=== PATIENT | female | born 2000 | race Caucasian/White ===

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

== ENCOUNTER 2024-03-29 10:34 | Emergency (ER) | payer BC, SELFPAY ==
--- OUTSIDE RECORDS SUMMARY | 2024-03-29 10:37 | XMS REPORT | Continuity of Care Document ---
Author Name Unknown Address [address] [facility] [address] [place], [place] [address] [place] [address] thconnect Address [address] [facility]. [address] [place] [address] Care Team Providers Care Medical Biller Coder Name Role Phone ADOLFO DURAND Primary Care Physician Unavaila GWEN Rodney Attending Clinician GWEN Trujillo Attending Clinician HILARIO Aburto Attending Clinician Unavailable JESSICA SHAIKH Attending Clinician Unavailable ALIYAH MONTANEZ Attending Clinician Unava ilnathanael LAB90 Attending Clinician Unavailable Rodrigo Calderon NP Attending Clinician [phone] RODRIGO CALDERON Attending Clinician Unavailwalter bowser Doctor Unassigned, [place] Attending Clinician U Porsche Gipson MD Attending Clinician [phone] Jessica Attending Clinician Unavail able Gabriele Ellis Attending Clinician [phone] Silvana Aponte RN Attending Clinician PORSCHE Cabrera Attending Clinician Unavailable Jessica Admitting Clinician Unavail able Payers Payer Name Policy Type Policy Number Effective Date Expirati on Date Source [facility] [id number] 2023 00:00:00 BCBS 2 [id number] 2022 00:00:[place] [id number] 2022 00:00:00 [place] [id number] 2022 00:00:00 Problems Condition Name Condition Details Condition Category Status Onset Date Resolution Date Last Treatment Date Treating Clinician Comments Source Asthma Asthma Disease Active 03-12 00:00: 00 Stacie Seybold - Externa l Acute non-recurr ent maxillary sinusitis Acute non-recurr ent maxillary sinusitis Disease Active 03-12 00:00: 00 Stacie Seybold - Externa l Weight loss Weight loss Disease Active 03-12 00:00: 00 Stacie Seybold - Externa l Seasonal allergic rhinitis due to pollen Seasonal allergic rhinitis due to pollen Disease Active 03-12 00:00: 00 Stacie Seybold - Externa l Polyuria Polyuria Disease Active 03-12 00:00: 00 Stacie Seybold - Externa l Overweight (BMI 25.0-29.9) Overweight (BMI 25.0-29.9) Disease Active 03-12 00:00: 00 Stacie Seybold - Externa l BMI 36.0-36.9, adult BMI 36.0-36.9, adult Disease Active 2021-07 0- 00:00: 00 [facility] Pain in right foot Pain in Right Foot Problem Active 01-26 00:00: 00 [facility] Sprain of right foot Sprain of Right Foot Problem Active 01-26 00:00: 00 [facility] Well woman exam with routine gynecologi casey exam Well woman exam with routine gynecologi casey exam Disease Active 8-10 00:00: 00 [facility] Hand pain Hand Pain Problem Active 2018-07 2-23 00:00: 00 [facility] Crushing injury of foot Crushing Injury of Foot Problem Active 2018-07 00:00: 00 [facility] Sprain of foot Sprain of Foot Problem Active 2013-07 006 00:00: 00 [facility] Closed fracture of middle AND/OR proximal phalanx of finger Closed Fracture of Middle AND/OR Proximal Phalanx of Finger Problem Active 3 00:00: 00 [facility] Asthma Asthma Problem Active 2012-07 00:00: 00 [facility] Sprain of ankle Sprain of Ankle Problem Active 2012-07 00:00: 00 [facility] No known active problems No known active problems Disease Stacie diaz Allergies, Adverse Reactions, Alerts Allergy Name Allergy Type Status Severity Reaction(s) Onset Date Inactive Date Treating Clinician Comments Source Ibuprofe n Propensi ty to adverse reaction s Active Hives 09-21 00:00: 00 [facility] IBUPROFE N DRUG INGREDI Active Hives 09-21 00:00: 00 [facility] Ibuprofe n Allergy to substanc e Active 2012-07 00:00: 00 [facility] Ibuprofe n Propensi ty to adverse reaction s Active Hives 9 00:00: 00 Stacie diaz Social History Social Habit Start Date Stop Date Quantity Comments Source Sexual orientation Sun Rojas - External History SDOH Alcohol Frequency [facility] History SDOH [facility] Alcohol Binge [facility] Gender identity Paula Rojas - External Tobacco use and exposure 2023-03-12 00:00:00 2023-03-12 00:00:00 Smokeless tobacco non-user Stacie Rojas - External Alcohol intake 2023-03-12 00:00:00 2023-03-12 00:00:00 Current drinker of alcohol (finding) Stacie Rojas - External Education 2023-03-12 00:00:00 2023-03-12 00:00:00 13 Stacie Rojas - External Alcohol Comment 2023-03-12 00:00:00 2023-03-12 00:00:00 occasionally Stacie Cardenascarmennatalia - External History of Social function 2022-06-23 00:00:00 2022-06-23 00:00:00 Stacie Cardenascarmennatalia - External Sex Assigned At 2000 00:00:00 2000 00:00:00 Stacie Rojas - External Smoking Status Start Date Stop Date Source Never smoked tobacco Stacie Rojas - External Medications Ordered Medication Name Filled Medication Name Start Date Stop Date Current Medication? Ordering Clinician Indication Dosage Frequency Signature (SIG) Comments Components Source Cetirizine (ZYRTEC) 10 MG oral Tablet 03-12 08:29: 06 Yes 10mg Take 1 tablet (10 mg total) by mouth daily. Stacie diaz Amoxicillin -Pot Clavulanate 875-125 MG oral Tablet 03-12 00:00: 00 Yes [id number] 1{tbl} Take 1 tablet by mouth 2 times daily. Stacie diaz FLUTICASONE PROPIONATE, NASAL, 50 MCG/ACT nasal Suspension 03-12 00:00: 00 Yes [id number] 50ug Use 1 spray (50 mcg total) in each nostril daily. Stacie diaz Azithromyci n 250 MG oral Tablet 03-02 00:00: 00 03-12 00:00 :00 No [id number] Take 2 tablets by mouth on day 1 then 1 tablet by mouth daily for 4 days thereafter .. Stacie diaz Benzonatate (Tessalon Perles) 100 MG oral Capsule 03-02 00:00: 00 03-12 00:00 :00 No [id number] 100mg [id number] 3D Take 1 capsule (100 mg total) by mouth 3 times daily as needed for cough. Stacie diaz drospirenon e-ethinyl estradioL (aMndo LAGUNAS,) 3-0.02 mg per tablet 2023-0 1-04 00:00: 00 Yes [id number] 1{tbl} Take 1 tablet by mouth in the morning. [facility] Amoxicillin -Pot Clavulanate 875-125 MG oral Tablet 2021-07 2- 00:00: 00 Yes [id number] 1{tbl} Take 1 tablet by mouth 2 times daily Stacie diaz Drospirenon e-Ethinyl Estradiol 3-0.02 MG oral Tablet 2021-07 0- 00:00: 00 Yes 1{tbl} Take 1 tablet by mouth daily. Stacie diaz drospirenon e-ethinyl estradioL (JANNETH, Mando,) 3-0.02 mg per tablet 2021-07 0 00:00: 00 07-15 00:00 :00 No [id number] 1{tbl} Take 1 tablet by mouth in the morning. [facility] Ondansetron (ZOFRAN) 4 MG oral TABLET DISPERSIBLE 03-30 00:00: 00 03-02 00:00 :00 No Stacie LAGUNAS, Mando, 3-0.02 mg per tablet 03-13 00:00: 00 Yes [id number] TAKE ONE TABLET BY MOUTH DAILY [facility] chlorphenir amine/pseud oephed (ALLERGY ORAL) 810 14:26: 13 Yes Take by mouth. [facility] chlorphenir amine/pseud oephed (ALLERGY ORAL) 8-10 09:26: 13 Yes Take by mouth. [facility] drospirenon e-ethinyl estradioL (JANNETH, Mando,) 3-0.02 mg per tablet 8-10 00:00: 00 03-13 00:00 :00 No [id number] 1{tbl} Take 1 tablet by mouth daily. [facility] drospirenon e-ethinyl estradioL (GENE, 28,) 3-0.02 mg per tablet 4-23 00:00: 00 02-18 00:00 :00 No [id number] 1{tbl} Take 1 tablet by mouth daily. [facility] Flovent HFA 44 mcg/actuati on aerosol inhaler RX by other Flovent HFA 44 mcg/actuati on aerosol inhaler RX by other 2012-07 00:00: 00 No Flovent HFA 44 mcg/actuat ion aerosol inhaler RX by other MD [facility] Singulair 10 mg tablet RX by other Singulair 10 mg tablet RX by other 2012-07 00:00: 00 No Singulair 10 mg tablet RX by other MD [facility] Zyrtec 10 mg tablet RX by other Zyrtec 10 mg tablet RX by other 2012-07 00:00: 00 No Zyrtec 10 mg tablet RX by other MD [facility] Vital Signs Vital Name Observation Time Observation Value Comments S ource Systolic blood pressure 2023-03-12 13:16:00 119 mm[Hg] Stacie Gauthier ld - External Diastolic blood pressure 2023-03-12 13:16:00 68 mm[Hg] Stacie ny - External Heart rate 2023-03-12 13:16:00 74 /min Doni Rojas - External Body temperature 2023-03-12 13:16:00 36.39 Carlota Stacie Rojas - External Respiratory rate 2023-03-12 13:16:00 15 /min Stacie Rojas - External Body height 2023-03-12 13:16:00 172.7 cm Paula Rojas - External Body weight 2023-03-12 13:16:00 83.915 kg Paula Rojas - External BMI 2023-03-12 13:16:00 28.13 kg/m2 Paula Rojas - External Oxygen saturation in Arterial blood by Pulse oximetry 2023-03-12 13:16:00 99 /min Stacie ny - External Systolic blood pressure 2023 16:42:00 108 mm[Hg] Stacie Gauthier ld - External Diastolic blood pressure 2023 16:42:00 70 mm[Hg] Stacie Seybo ld - External Heart rate 2023 16:42:00 77 /min Raminse y Seybold - External Body temperature 2023 16:42:00 36.39 Carlota Stacie Seybold - External Respiratory rate 2023 16:42:00 16 /min Stacie Seybold - External Body height 2023 16:42:00 172.7 cm Paula ey Seybold - External Body weight 2023 16:42:00 92.08 kg Paula ey Seybold - External BMI 2023 16:42:00 30.87 kg/m2 Paula ey Seybold - External Oxygen saturation in Arterial blood by Pulse oximetry 2023 16:42:00 99 /min Stacie Seybo ld - External Systolic blood pressure 2022-06-23 19:48:00 100 mm[Hg] Stacie Seybo ld - External Diastolic blood pressure 2022-06-23 19:48:00 64 mm[Hg] Stacie Seybo ld - External Heart rate 2022-06-23 19:48:00 103 /min Raminse y Seybold - External Body temperature 2022-06-23 19:48:00 36 Carlota Stacie Seybold - External Respiratory rate 2022-06-23 19:48:00 16 /min Stacie Seybold - External Body height 2022-06-23 19:48:00 172.7 cm Paula ey Seybold - External Body weight 2022-06-23 19:48:00 103.874 kg Paula ey Seybold - External BMI 2022-06-23 19:48:00 34.82 kg/m2 Paula ey Seybold - External Systolic blood pressure 2022-04-28 15:05:00 108 mm[Hg] [facility] Diastolic blood pressure 2022-04-28 15:05:00 74 mm[Hg] [facility] Heart rate 2022-04-28 15:05:00 75 /min [facility] Body temperature 2022-04-28 15:05:00 36.83 Carlota [facility] Respiratory rate 2022-04-28 15:05:00 18 /min [facility] Body height 2022-04-28 15:05:00 172.7 cm [facility] Body weight 2022-04-28 15:05:00 108.41 kg [facility] BMI 2022-04-28 15:05:00 36.34 kg/m2 [facility] Systolic blood pressure 2021-02-18 14:24:00 115 mm[Hg] [facility] Diastolic blood pressure 2021-02-18 14:24:00 78 mm[Hg] [place] [facility] Heart rate 2021-02-18 14:24:00 81 /min [facility] Body temperature 2021-02-18 14:24:00 36.78 Carlota [facility] Respiratory rate 2021-02-18 14:24:00 18 /min [facility] Body height 2021-02-18 14:24:00 172.7 cm [facility] Body weight 2021-02-18 14:24:00 107.321 kg [facility] BMI 2021-02-18 14:24:00 35.97 kg/m2 [facility] Procedures Procedure Date / Time Performed Performing Clinician Source LS RAPID STREP ASSAY-LAB TEST 2022-06-23 20:10:00 Aliyah Montanez - External GC & CHLAMYDIA AMPLIFIED ASSAY 2022-04-28 15:25:00 Rodrigo Calderon [facility] TRICHOMONAS AMPLIFIED ASSAY 2022-04-28 15:25:00 Rodrigo Calderon [facility] PAP SMEAR-LIQUID BASED-CP 2022-04-28 15:25:00 Rodrigo Calderon [facility] CONSENT FOR CONTRACEPTION 2022-04-28 05:01:00 Doctor Unassigned, [place] [facility] XR, foot, 3 or more view 2022-01-26 00:00:00 [facility] EXTERNAL PROVIDER RECORDS 2021-10-20 05:01:00 Doctor Unassigned, [place] [facility] EXTERNAL PROVIDER RECORDS 2021-08-22 06:01:00 Doctor Unassigned, [place] [facility] Plan of Care Planned Activity Planned Date Details Comments Source Instructions [facility] Encounters Start Date/Time End Date/Time Encounter Type Admission Type Attending [facility] Facility Care Department Encounter ID Source 2024-03-31 08:45:00 2024-03-31 08:45:00 Outpatient GWEN SANCHEZ-JABIER GWEN Feliz [facility] [id number] [facility] 2024-03-29 15:45:00 2024-03-29 15:45:00 Outpatient HILARIO NARANJO [facility] [id number] [facility] 2023-09-01 11:00:00 2023-09-01 11:00:00 Outpatient STACIE MEEHAN [id number] Stacie [facility] 2023-03-24 16:45:00 2023-03-24 16:45:00 Outpatient JESSICA SHAIKH [id number] [facility] 2023-03-18 00:00:00 2023-03-18 00:00:00 Outpatient ALIYAH MONTANEZ [id number] [facility] 2023-03-18 00:00:00 2023-03-18 00:00:00 Outpatient JESSICA SHAIKH [id number] [facility] 2023-03-18 00:00:00 2023-03-18 00:00:00 Outpatient JESSICA SHAIKH [id number] [facility] 2023-03-17 00:00:00 2023-03-17 00:00:00 Outpatient JESSICA SHAIKH [id number] [facility] 2023-03-17 00:00:00 2023-03-17 00:00:00 Outpatient JESSICA SHAIKH [id number] [facility] 2023-03-12 12:35:00 2023-03-12 12:35:00 Out[facility] [id number] [facility]12 08:50:00 2023-03-12 08:50:00 Outpatient LAB90 STACIE MEEHAN [id number] [facility] 2023-03-12 08:15:00 2023-03-12 08:15:00 Outpatient JESSICA SHAIKH [id number] Stacie Rojas 2023-03-12 00:00:00 2023-03-12 00:00:00 Outpatient JESSICA SHAIKH [id number] Stacie Rojas 2023 11:45:00 2023 11:45:00 Outpatient JESSICA SHAIKH [facility] [id number] [facility] 2022-07-15 00:00:00 2022-07-15 00:00:00 Refill Rodrigo Calderon [facility] 1.840.114 350.1.13.10 [id number] [id number] [facility] 2022-06-23 14:00:00 2022-06-23 14:00:00 Outpatient ALIYAH MONTANEZ [id number] [facility] 2022-04-28 09:30:00 2022-04-28 10:30:02 Outpatient R RODRIGO CALDERON [facility] [id number] [facility] 2022-04-28 09:30:00 2022-04-28 10:30:02 Office Visit Rodrigo Calderon [facility] 1.840.114 350.1.13.10 4.2.7.2.686 [id number] [facility] 2022-04-28 00:00:00 2022-04-28 00:00:00 Orders Only Doctor Unassigned, Pres[place] [facility] 1.840.114 350.1.13.10 4.2.7.2.686 [id number] [facility] 2022-04-22 00:00:00 2022-04-22 00:00:00 Refill Rodrigo Calderon [facility] 1.840.114 350.1.13.10 4.2.7.2.686 [id number] [facility] 2022-03-10 00:00:00 2022-03-10 00:00:00 Refill Porsche Hernadez [facility] 1..840.114 350.1.13.10 4.2.7.2.686 [id number] [facility] 2022-02-25 00:00:00 2022-02-25 00:00:00 Outpatient FOG_Loncari Lisa AOSM AOSM [id number] [facility] 2022-01-26 05:25:00 2022-01-26 05:25:00 Outpatient FOG_Lonkonstantin Gonzalez AOSM AOSM [id number] [facility] 2022-01-26 00:00:00 2022-01-26 00:00:00 Gabriele Ellis MD: [address] [place] [id number] , Ph. [phone] [facility]OS[facility] [place] [facility] [place] [facility] [id number] [facility] 2022-01-26 00:00:00 2022-01-26 00:00:00 Outpatient Gabriele Ellis AOSM AOSM [id number] 2022-01-25 01:58:00 2022-01-25 01:58:00 Outpatient FOG_Loncari Lisa AOSM AOSM [id number] [facility] 2021-12-17 05:53:00 2021-12-17 05:53:00 Outpatient FOG_Lonkonstantin Gonzalez AOSM AOSM [id number] [facility] 2021-11-27 00:00:00 2021-11-27 00:00:00 Refill Fish, Porsche [facility] 1.2.840.114 350.1.13.10 4.2.7.2.686 [id number] [facility] 2021-11-13 00:00:00 2021-11-13 00:00:00 Telephone Porsche Hernadez [facility] 1.2.840.114 350.1.13.10 4.2.7.2.686 [id number] [facility] 2021-10-20 00:00:00 2021-10-20 00:00:00 Orders Only Doctor Unassigned, Presho [facility] 1.2.840.114 350.1.13.10 4.2.7.2.686 [id number] [facility] 2021-08-22 00:00:00 2021-08-22 00:00:00 Orders Only Doctor Unassigned, Presho [facility] 1.2.840.114 350.1.13.10 4.2.7.2.686 [id number] [facility] 2021-08-14 00:00:00 2021-08-14 00:00:00 Telephone Silvana Aponte 1.2.840.114 350.1.13.10 4.2.7.2.686 [id number] [facility] 2021-02-18 09:06:03 2021-02-18 09:43:29 Office Visit Porsche Hernadez [facility] 1.2.840.114 350.1.13.10 4.2.7.2.686 [id number] [facility] 2021-02-18 09:00:00 2021-02-18 09:00:00 Outpatient R PORSCHE HERNADEZ [facility] [id number] [facility] Notes Date/Time Note Provider Source 2023 11:44:21 Formatting of this n ote might be different from the original. Patient is here for cough and congestion x 2 days, no SOB or pain upon breathing, afebrile, vss, medication sreconciled. Migdalia Turner [facility]
[2024-03-29 11:10] LABS: Absolute Eosinophils 0.1 K/uL (0-0.5); Absolute Monocytes 0.5 K/uL (0.1-1.3); Absolute Neutrophil 4.8 K/uL (1.8-8.0); Basophils % 0.4 % (0-1.3); Hematocrit 39.1 % (36.0-45.0); MCH 30.2 pg (27.0-35.0); MCHC 33.1 g/dL (32.0-36.0); MCV 91.2 fL (80-100); MPV 8.6 fL (7.6-11.3); Monocytes % 6.2 % (3.3-12.3); Neutrophils % 65.4 % (41.7-73.7); Platelets 276 thou/uL (152-406); RBC Red Blood Cell Count 4.29 M/uL (3.86-4.86); Red Cell Distribution Width 12.6 % (12.1-15.2)
[2024-03-29] MEDS ORDERED: DIPHENHYDRAMINE 50 MG/ML VIAL ONE (11:15)
[2024-03-29] MEDS ORDERED: METHYLPREDNISOLONE 125 MG INJ ONE (11:15)
[2024-03-29] MEDS ORDERED: predniSONE 20 MG TAB ONE (11:15)
[2024-03-29] MEDS ORDERED: NA CHLORIDE 0.9% 1,000 ML ONE (11:15)
[2024-03-29] MEDS ORDERED: FAMOTIDINE 20 MG/2 ML VIAL IV ONE (11:15)
[2024-03-29 12:07] LABS: ALT/SGPT 21 U/L (13-56); Albumin 3.4 g/dL (3.4-5.0); Albumin/Globulin Ratio 0.8 (1.1-1.8); Alkaline Phosphatase 78 U/L (45-117); Anion Gap 8.9 mEq/L (5.0-15.0); BUN Blood Urea Nitrogen 10 mg/dL (7-18); Bicarbonate 26 mEq/L (21-32); Globulin 4.1 g/dL (2.3-3.5); Glomerular Filtration Rate 92 ml/min (=/>90); Glucose Level 89 mg/dL (74-106); Protein, Total 7.5 g/dL (6.4-8.2); Sodium Level 137 mEq/L (136-145)
[2024-03-29 12:10] LABS: AST/SGOT 21 U/L (15-37); Bilirubin Total < 0.2 mg/dL (0.2-1.0); Potassium 3.9 mEq/L (3.5-5.1)
--- NOTE | 2024-03-29 12:22 | ER ---
Nurse's Notes [facility] Name: Rolanda Cerrato Age: 24 yrs Sex: Female : 2000 Arrival Date: 03/29/2024 Time: 10:34 Bed 9 Private MD: Diagnosis: Insect allergy status;Angioneurotic edema Presentation: 03/29 10:50 Chief complaint: Patient states: I accidentally swallowed some tobacco, and now I feel tm6 like someone is squeezing my throat and it is itching. Coronavirus screen: Vaccine status: Patient reports being unvaccinated. Ebola Screen: Patient negative for fever greater than or equal to 101.5 degrees Fahrenheit, and additional compatible Ebola Virus Disease symptoms Patient denies exposure to infectious person. Patient denies travel to an Ebola-affected area in the 21 days before illness onset. No symptoms or risks identified at this time. Onset: The symptoms/episode began/occurred this morning. Anaphylaxis evaluation, no signs or symptoms of anaphylaxis were noted. Initial Sepsis Screen: Does the patient meet any 2 criteria? No. Patient's initial sepsis screen is negative. Does the patient have a suspected source of infection? No. Patient's initial sepsis screen is negative. Risk Assessment: Do you want to hurt yourself or someone else? Patient reports no desire to harm self or others. Onset of symptoms was March 29, 2024. 10:50 Method Of Arrival: Wheelchair tm6 10:50 Acuity: WILL 3 tm6 Triage Assessment: 10:52 General: Appears in no apparent distress. Behavior is calm, cooperative. Pain: Denies tm6 pain. EENT: Reports feels like someone is squeezing my throat and it is itching. Neuro: Level of Consciousness is awake, alert, obeys commands, Oriented to person, place, time, situation. Cardiovascular: Patient's skin is warm and dry. Respiratory: Airway is patent Respiratory effort is even, unlabored, Respiratory pattern is regular, symmetrical. GI: Abdomen is flat, non-distended. : No signs and/or symptoms were reported regarding the genitourinary system. Derm: No signs and/or symptoms reported regarding the dermatologic system. Musculoskeletal: No signs and/or symptoms reported regarding the musculoskeletal system. 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 - Infectious Disease History:: Denies. - Social history:: Smoking status: Reported history of juuling and/or vaping. Screenin:50 [facility] ED Fall Risk Assessment (Adult) History of falling in the last 3 months, iw including since admission No falls in past 3 months (0 pts) Confusion or Disorientation No (0 pts) Intoxicated or Sedated No (0 pts) Impaired Gait No (0 pts) Mobility Assist Device Used No (0 pt) Altered Elimination No (0 pt) Score/Fall Risk Level 0 - 2 = Low Risk. Abuse screen: Denies threats or abuse. Nutritional screening: No deficits noted. Tuberculosis screening: No symptoms or risk factors identified. Assessment: 11:50 Reassessment: Patient appears in no apparent distress at this time. Patient and/or iw family updated on plan of care and expected duration. Pain level reassessed. Patient is alert, oriented x 3, equal unlabored respirations, skin warm/dry/pink. 12:50 Reassessment: Patient appears in no apparent distress at this time. Patient and/or iw family updated on plan of care and expected duration. Pain level reassessed. Patient is alert, oriented x 3, equal unlabored respirations, skin warm/dry/pink. Respiratory: Airway is patent Respiratory effort is even, unlabored, Breath sounds are clear bilaterally. Vital Signs: 10:50 BP 128 / 78; Pulse 80; Resp 18; Temp 97.4(TE); Pulse Ox 99% on R/A; Weight 86.18 kg; tm6 Height 5 ft. 7 in. ; Pain 0/10; 10:50 Body Mass Index 29.76 (86.18 kg, 170.18 cm) tm6 10:50 Pain Scale: Adult tm6 ED Course: 10:37 Patient arrived in ED. mg5 10:38 Robin Bui MD is Attending Physician. zeny 10:46 Mela Juan, OSMIN is Primary Nurse. iw 10:52 Triage completed. tm6 10:52 Arm band placed on right wrist. tm6 11:02 Comprehensive Metabolic Panel Sent. bc6 11:02 CBC with Diff Sent. bc6 11:02 Initial lab(s) drawn, by ED staff, sent to lab. Inserted saline lock: 20 gauge in left bc6 antecubital area, using aseptic technique. Blood collected. Flushed with 10 mL NS. 11:50 Patient has correct armband on for positive identification. iw 13:24 No provider procedures requiring assistance completed. IV discontinued, intact, iw bleeding controlled, No redness/swelling at site. Pressure dressing applied. Administered Medications: 11:36 Drug: NS 0.9% IV 1000 ml IV at 1 bolus Per protocol; 1000 mL bolus Route: IV; Rate: 1 iw bolus; Site: left antecubital; 12:36 Follow up: IV Status: Completed infusion iw 11:36 Drug: diphenhydrAMINE IVP 50 mg IVP once Route: IVP; Site: left antecubital; iw 12:30 Follow up: Response: No adverse reaction iw 11:36 Drug: Famotidine IVP 40 mg IVP once; dilute with 10 mL 0.9% NaCl; give over 2 minutes iw Route: IVP; Site: left antecubital; 12:00 Follow up: Response: No adverse reaction iw 11:36 Drug: MethylPrednisoLONE IVP 125 mg IVP once Route: IVP; Site: left antecubital; iw 12:00 Follow up: Response: No adverse reaction iw 11:36 Drug: predniSONE PO 60 mg PO once Route: PO; iw 12:00 Follow up: Response: No adverse reaction iw Medication: 11:50 VIS not applicable for this client. iw Outcome: 12:21 Discharge ordered by . zeny 13:24 Patient left the ED. iw 13:24 Discharged to home ambulatory, iw 13:24 Condition: good 13:24 Discharge instructions given to patient, family, Instructed on discharge instructions, follow up and referral plans. medication usage, Demonstrated understanding of instructions, follow-up care, medications, Prescriptions given X 3, Signatures: Robin Bui MD MD cha Williams, Irene, RN RN iw Yanet Telles bc6 Rolanda Garcia mg5 Alejandrina Moulton RN RN tm6 Corrections: (The following items were deleted from the chart) 10:52 10:52 PSHx: None; tm6 tm6
--- NOTE | 2024-03-29 12:22 | EDPHYS ---
Physician Documentation [facility] Name: Rolanda Cerrato Age: 24 yrs Sex: Female : 2000 Arrival Date: 03/29/2024 Time: 10:34 Bed 9 Private MD: JOSE Physician Robin Bui HPI: 03/29 11:10 This 24 yrs old Female presents to ER via Wheelchair with complaints of zeny Allergic Reaction, Shortness Of Breath. 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 - Infectious Disease History:: Denies. - Social history:: Smoking status: Reported history of juuling and/or vaping. ROS: 11:18 Constitutional: Negative for fever, chills, and weight loss, Eyes: Negative for injury, zeny pain, redness, and discharge, Neck: Negative for injury, pain, and swelling, Cardiovascular: Negative for chest pain, palpitations, and edema, Respiratory: Negative for shortness of breath, cough, wheezing, and pleuritic chest pain, Abdomen/GI: Negative for abdominal pain, nausea, vomiting, diarrhea, and constipation, Back: Negative for injury and pain, : Negative for injury, bleeding, discharge, and swelling, MS/Extremity: Negative for injury and deformity, Neuro: Negative for headache, weakness, numbness, tingling, and seizure, Psych: Negative for depression, anxiety, suicide ideation, homicidal ideation, and hallucinations, Allergy/Immunology: Negative for hives, rash, and allergies, Endocrine: Negative for neck swelling, polydipsia, polyuria, polyphagia, and marked weight changes, Hematologic/Lymphatic: Negative for swollen nodes, abnormal bleeding, and unusual bruising, 11:18 ENT: Positive for difficulty swallowing, 11:18 Skin: Positive for rash, of the abdomen, Exam: 11:18 Constitutional: This is a well developed, well nourished patient who is awake, alert, zeny and in no acute distress. Head/Face: Normocephalic, atraumatic. Eyes: Pupils equal round and reactive to light, extra-ocular motions intact. Lids and lashes normal. Conjunctiva and sclera are non-icteric and not injected. Cornea within normal limits. Periorbital areas with no swelling, redness, or edema. ENT: Nares patent. No nasal discharge, no septal abnormalities noted. Tympanic membranes are normal and external auditory canals are clear. Oropharynx with no redness, swelling, or masses, exudates, or evidence of obstruction, uvula midline. Mucous membranes moist. Neck: Trachea midline, no thyromegaly or masses palpated, and no cervical lymphadenopathy. Supple, full range of motion without nuchal rigidity, or vertebral point tenderness. No Meningismus. Chest/axilla: Normal chest wall appearance and motion. Nontender with no deformity. No lesions are appreciated. Cardiovascular: Regular rate and rhythm with a normal S1 and S2. No gallops, murmurs, or rubs. Normal PMI, no JVD. No pulse deficits. Respiratory: Lungs have equal breath sounds bilaterally, clear to auscultation and percussion. No rales, rhonchi or wheezes noted. No increased work of breathing, no retractions or nasal flaring. Abdomen/GI: Soft, non-tender, with normal bowel sounds. No distension or tympany. No guarding or rebound. No evidence of tenderness throughout. Back: No spinal tenderness. No costovertebral tenderness. Full range of motion. Skin: Warm, dry with normal turgor. Normal color with no rashes, no lesions, and no evidence of cellulitis. MS/ Extremity: Pulses equal, no cyanosis. Neurovascular intact. Full, normal range of motion. Neuro: Awake and alert, GCS 15, oriented to person, place, time, and situation. Cranial nerves II-XII grossly intact. Motor strength 5/5 in all extremities. Sensory grossly intact. Cerebellar exam normal. Normal gait. Psych: Awake, alert, with orientation to person, place and time. Behavior, mood, and affect are within normal limits. 11:18 Skin: injury, right mid abd possible bite , no erythema, Vital Signs: 10:50 BP 128 / 78; Pulse 80; Resp 18; Temp 97.4(TE); Pulse Ox 99% on R/A; Weight 86.18 kg; tm6 Height 5 ft. 7 in. ; Pain 0/10; 10:50 Body Mass Index 29.76 (86.18 kg, 170.18 cm) tm6 10:50 Pain Scale: Adult tm6 MDM: 10:38 Patient medically screened. zeny 11:20 Differential diagnosis: anaphylaxis, angioedema, bronchospasm, urticaria. Data zeny reviewed: vital signs, nurses notes, lab test result(s), CBC, electrolytes. Consideration of Admission/Observation Escalation of care including admission/observation considered. I considered the following discharge prescriptions or medication management in the emergency department Medications were administered in the Emergency Department. See MAR. Independent interpretation of the following test(s) in the Emergency Department EKG: See my EKG interpretation above. Test considered but Not performed: EKG: no ekg. Care significantly affected by the following chronic conditions: Obesity, asthma. 03/29 10:41 Order name: CBC with Diff; Complete Time: 12:21 [facility] 03/29 10:41 Order name: Comprehensive Metabolic Panel; Complete Time: 12:21 [facility] 03/29 11:12 Order name: Labs - recollect needed: recollect green top; Complete Time: 11:36 bd Administered Medications: 11:36 Drug: NS 0.9% IV 1000 ml IV at 1 bolus Per protocol; 1000 mL bolus Route: IV; Rate: 1 iw bolus; Site: left antecubital; 12:36 Follow up: IV Status: Completed infusion iw 11:36 Drug: diphenhydrAMINE IVP 50 mg IVP once Route: IVP; Site: left antecubital; iw 12:30 Follow up: Response: No adverse reaction iw 11:36 Drug: Famotidine IVP 40 mg IVP once; dilute with 10 mL 0.9% NaCl; give over 2 minutes iw Route: IVP; Site: left antecubital; 12:00 Follow up: Response: No adverse reaction iw 11:36 Drug: MethylPrednisoLONE IVP 125 mg IVP once Route: IVP; Site: left antecubital; iw 12:00 Follow up: Response: No adverse reaction iw 11:36 Drug: predniSONE PO 60 mg PO once Route: PO; iw 12:00 Follow up: Response: No adverse reaction iw Disposition Summary: 03/29/24 12:21 Discharge Ordered Notes: Location: Home zeny Problem: new zeny Symptoms: have improved zeny Condition: Stable zeny Diagnosis - Insect allergy status zeny - Angioneurotic edema zeny Followup: zeny - With: Private Physician - When: 2 - 3 days - Reason: Recheck today's complaints, Continuance of care, Re-evaluation by your physician Discharge Instructions: - Discharge Summary Sheet zeny - Anaphylactic Reaction, Adult zeny - Insect Bite, Adult, [id number] zeny - Insect Bite, Adult zeny - Anaphylactic Reaction, Adult, [id number] zeny Forms: - Medication Reconciliation Form zeny - Antibiotic Education zeny - Prescription Opioid Use zeny - Patient Portal Instructions zeny - Leadership Thank You Letter zeny - Work release form iw Prescriptions: - EpiPen 0.3 mg/0.3 mL Injection Auto-Injector - administer 0.3 milliliter INTRAMUSCULAR route once as a single dose; may repeat zeny once; 2 Pack; Refills: 0, Product Selection Permitted - Benadryl 25 mg Oral capsule - take 2 capsule ORAL route every 6 hours As needed; 56 tablet; Refills: 0, [facility] Product Selection Permitted - Pepcid 20 mg Oral tablet - take 1 tablet ORAL route every 12 hours for 21 days; 42 tablet; Refills: 0, [facility] Product Selection Permitted - Prednisone 20 mg Oral Tablet - take 2 tablets ORAL route once daily for 5 days; 10 tablet; Refills: 0, Product zeny Selection Permitted Signatures: Dispatcher [employer] EDGeovanna Morales Corey, MD MD cha Williams, Irene, RN RN iw Alejandrina Moulton RN RN tm6 Corrections: (The following items were deleted from the chart) 10:42 10:42 CBC+H.LAB.BRZ ordered. EDMS EDMS 10:42 10:42 COMPREHENSIVE METABOLIC PANEL+C.LAB.BRZ ordered. EDMS EDMS 10:52 10:52 PSHx: None; tm6 tm6
[2024-03-29 13:28] VITALS: BP 128/78; TEMP 97.4; O2SAT 99
== END 2024-03-29 13:24 | disposition home or self-care (01) ==
LOC: ER 10:34
DX: T78.3XXA Angioneurotic edema, initial encounter (principal); J45.909 Unspecified asthma, uncomplicated; F17.290 Nicotine dependence, other tobacco product, uncomplicated; Z91.038 Other insect allergy status
CPT/HCPCS: 96361; 85025; 36415; 80053; 96375; 96374; 99284; J7512; J1200; J2919; J7030